=== PATIENT | male | born 1955 | race Hispanic/Latino ===

== ENCOUNTER 2021-04-11 07:42 | Inpatient (IN) | payer OTHER ==
[~2021-04-11] VITALS: Ht 170.2 cm; Wt 98.7 kg
[2021-04-11] MEDS ORDERED: 0.9%NACL 1000ML 1,000 ML IV ONE (08:33)
[2021-04-11 08:41] LABS: BASOPHILS % (AUTO) 0.3 % (0.0-5.0); EOSINOPHILS % (AUTO) 0.1 % (0.0-8.0); LYMPHOCYTES % (AUTO) 10.6 % (21.0-51.0); MEAN CORPUSCULAR HEMOGLOBIN 28.9 pg (27.0-33.0); MEAN CORPUSCULAR HGB CONC 32.8 g/dL (32.0-36.0); MONOCYTES % (AUTO) 5.3 % (3.0-13.0); NEUTROPHILS % (AUTO) 82.9 % (40.0-77.0); PLATELET COUNT (AUTO) 256 K/uL (130-400); RED BLOOD CELL COUNT(AUTO) 4.43 MIL/uL (4.50-6.20); RED CELL DISTRIBUTION WIDTH 12.7 % (11.0-15.5); WHITE BLOOD COUNT (AUTO) 15.3 K/uL (4.8-10.8)
[2021-04-11] MEDS ORDERED: 0.9% NACL 500ML IV.SOLN 500 ML IV SCH (09:00)
[2021-04-11] MEDS ORDERED: CEFTRIAXONE 2GM VIAL IVP ONE (09:00)
[2021-04-11 09:14] LABS: CREATININE 1.1 mg/dL (0.5-1.5); POTASSIUM 3.7 mmol/L (3.5-5.1)
[2021-04-11 09:19] LABS: ALBUMIN 4.3 g/dL (3.5-5.0); BILIRUBIN,TOTAL 0.7 mg/dL (0.2-1.0); TOTAL PROTEIN, SERUM 8.3 g/dL (6.0-8.3)
[2021-04-11] MEDS ORDERED: MORPHINE 2 MG SYG ONE (09:19)
[2021-04-11] MEDS ORDERED: DIPHENHYDRAMINE HCL 25 MG CAPSULE PO PRN (09:30)
[2021-04-11] MEDS ORDERED: ONDANSETRON 4MG INJ IV PRN (09:30)
[2021-04-11] MEDS ORDERED: ACETAMINOPHEN 325 MG TAB PO PRN ×2 (09:30)
[2021-04-11] MEDS ORDERED: MAG/ALUM/SIMETH 30 ML UDCUP PO PRN (09:30)
[2021-04-11] MEDS ORDERED: DiphenhydrAMINE HCL 50 MG/ML VIAL IV PRN (09:30)
[2021-04-11] MEDS ORDERED: CEFTRIAXONE 2GM VIAL ONE (09:35)
[2021-04-11] MEDS ORDERED: 0.9%NACL 50ML 50 ML IV ONE (09:35)
[2021-04-11] MEDS: 0.9%NACL 1000ML 1,000 ML IV SCH ×2 (09:43→15:45)
[2021-04-11 09:59] LABS: HEMOGLOBIN A1C 6.2 % (4.0-6.0)
[2021-04-11] MEDS ORDERED: GLUCAGON 1MG KIT 1 MG ML IM PRN (10:00)
[2021-04-11] MEDS ORDERED: DEXTROSE 50%-WATER 50 ML DISP.SYRIN IV PRN (10:00)
[2021-04-11 10:14] LABS: INR 1.02 (0.85-1.15); PROTHROMBIN TIME 11.1 SEC (9.6-11.6)
[2021-04-11 10:15] LABS: PARTIAL THROMBOPLASTIN TIME 27.1 SEC (26.3-35.5)
[2021-04-11 10:16] LABS: BILIRUBIN,URINE NEGATIVE (NEGATIVE); GLUCOSE, URINE (UA) >=1000 mg/dL (NEGATIVE); KETONES,URINE 40 mg/dL (NEGATIVE); LEUKOCYTE ESTERASE ,URINE MODERATE (NEGATIVE); NITRATE,URINE POSITIVE (NEGATIVE); OCCULT BLOOD,URINE LARGE (NEGATIVE); PROTEIN,URINE >=300 mg/dL (NEGATIVE)
[2021-04-11 10:21] LABS: APPEARANCE,URINE TURBID (CLEAR); COLOR,URINE RED (YELLOW)
[2021-04-11 10:25] LABS: RBC,URINE TNTC /HPF (0-1)
[2021-04-11 10:26] LABS: BACTERIA,URINE Moderate /HPF (None Seen); SQUAMOUS EPITHELIAL CELL,UR 0-2 /HPF (0-2)
[2021-04-11] MEDS: 0.9%NACL 1000ML 1,983 ML IV SCH (11:02)
[2021-04-11] MEDS: INSULIN HUMULIN R 100 UNIT/ML 3ML SQ SCH ×3 (11:30→20:46)
[2021-04-11] MEDS ORDERED: MORPHINE 4 MG SYG ONE (15:35)
[2021-04-11] MEDS ORDERED: FINA5TAB41 PO (16:02)
[2021-04-11] MEDS ORDERED: CITA10TA13 PO (16:02)
[2021-04-11] MEDS ORDERED: PRAV80TA21 PO (16:02)
[2021-04-11] MEDS ORDERED: METF-446 PO (16:02)
[2021-04-11] MEDS ORDERED: TAMS-1 PO (16:02)
[2021-04-11] MEDS ORDERED: OMEP40CA21 PO (16:02)
[2021-04-11] MEDS ORDERED: DAPA10TA PO (16:02)
[2021-04-11 16:20] VITALS: BP 137/70
[2021-04-11] MEDS ORDERED: IOHEXOL-350 75 ML VIAL IV ONE (16:43)
[2021-04-11 17:49] LABS: HEMATOCRIT 38.3 % (42-54)
[2021-04-11] MEDS: MORPHINE 4 MG SYG IV PRN (19:42)
[2021-04-11] MEDS: FAMOTIDINE 20MG TAB PO SCH (19:42)
[2021-04-11 20:00] VITALS: BP 135/66
[2021-04-11] MEDS: ZOLPIDEM TARTRATE 5 MG TAB PO PRN ×2 (21:50→21:51)
[2021-04-12] VITALS: BP 141/66
[2021-04-12 04:00] VITALS: BP 137/55
[2021-04-12] MEDS: 0.9%NACL 1000ML 1,000 ML IV SCH ×2 (04:46→16:09)
[2021-04-12] MEDS: MORPHINE 4 MG SYG IV PRN (05:05)
[2021-04-12 05:42] LABS: MEAN CORPUSCULAR HEMOGLOBIN 28.6 pg (27.0-33.0); MEAN CORPUSCULAR HGB CONC 32.1 g/dL (32.0-36.0); MEAN CORPUSCULAR VOLUME 89.2 fL (79-99); RED BLOOD CELL COUNT(AUTO) 4.26 MIL/uL (4.50-6.20); RED CELL DISTRIBUTION WIDTH 13.1 % (11.0-15.5)
[2021-04-12] MEDS: INSULIN HUMULIN R 100 UNIT/ML 3ML SQ SCH ×4 (06:02→21:00)
[2021-04-12 06:13] LABS: ALBUMIN 3.9 g/dL (3.5-5.0); BILIRUBIN,TOTAL 0.5 mg/dL (0.2-1.0); CREATININE 0.8 mg/dL (0.5-1.5); POTASSIUM 3.8 mmol/L (3.5-5.1); TOTAL PROTEIN, SERUM 7.8 g/dL (6.0-8.3)
[2021-04-12 08:04] VITALS: BP 114/56
[2021-04-12] MEDS: FAMOTIDINE 20MG TAB PO SCH ×2 (08:28→20:59)
[2021-04-12] MEDS: 0.9%NACL 1000ML 1,983 ML IV SCH (09:30)
[2021-04-12 13:14] VITALS: BP 109/58
[2021-04-12 16:28] VITALS: BP 118/60
[2021-04-12 20:08] VITALS: BP 116/61
[2021-04-12] MEDS: ZOLPIDEM TARTRATE 5 MG TAB PO PRN (20:59)
[2021-04-13 00:12] VITALS: BP 120/52
[2021-04-13] MEDS: 0.9%NACL 1000ML 1,000 ML IV SCH ×3 (01:18→21:00)
[2021-04-13 04:12] VITALS: BP 102/56
[2021-04-13 04:18] LABS: BASOPHILS % (AUTO) 0.4 % (0.0-5.0); EOSINOPHILS % (AUTO) 1.6 % (0.0-8.0); LYMPHOCYTES % (AUTO) 23.3 % (21.0-51.0); MEAN CORPUSCULAR HEMOGLOBIN 28.9 pg (27.0-33.0); MEAN CORPUSCULAR HGB CONC 31.8 g/dL (32.0-36.0); MEAN CORPUSCULAR VOLUME 90.9 fL (79-99); MONOCYTES % (AUTO) 9.3 % (3.0-13.0); NEUTROPHILS % (AUTO) 65.1 % (40.0-77.0); PLATELET COUNT (AUTO) 188 K/uL (130-400); RED BLOOD CELL COUNT(AUTO) 3.74 MIL/uL (4.50-6.20)
[2021-04-13 04:38] LABS: ALBUMIN 3.2 g/dL (3.5-5.0); BILIRUBIN,TOTAL 0.3 mg/dL (0.2-1.0); CREATININE 0.7 mg/dL (0.5-1.5); POTASSIUM 3.6 mmol/L (3.5-5.1); TOTAL PROTEIN, SERUM 6.7 g/dL (6.0-8.3)
[2021-04-13] MEDS: INSULIN HUMULIN R 100 UNIT/ML 3ML SQ SCH ×4 (06:11→20:55)
[2021-04-13 08:00] VITALS: BP 118/60
[2021-04-13] MEDS: FAMOTIDINE 20MG TAB PO SCH ×2 (09:05→20:59)
[2021-04-13] MEDS: CEFTRIAXONE 1G VIAL IVP SCH ×2 (10:06→20:59)
[2021-04-13 12:00] VITALS: BP 150/48
[2021-04-13 16:00] VITALS: BP 127/60
[2021-04-13 20:24] VITALS: BP 120/68
[2021-04-13] MEDS: ZOLPIDEM TARTRATE 5 MG TAB PO PRN (21:13)
[2021-04-14] VITALS (24 sets, daily range): BP systolic 96–166; BP diastolic 43–115
[2021-04-14] MEDS: 0.9%NACL 1000ML 1,000 ML IV SCH ×6 (00:51→17:30)
[2021-04-14] MEDS: INSULIN HUMULIN R 100 UNIT/ML 3ML SQ SCH ×4 (06:17→20:38)
[2021-04-14 07:56] LABS: PROTHROMBIN TIME 10.9 SEC (9.6-11.6)
[2021-04-14 07:57] LABS: PARTIAL THROMBOPLASTIN TIME 27.8 SEC (26.3-35.5)
[2021-04-14] MEDS: FAMOTIDINE 20MG TAB PO SCH ×2 (09:00→20:37)
[2021-04-14] MEDS: CEFTRIAXONE 1G VIAL IVP SCH ×2 (10:12→20:37)
[2021-04-14] MEDS ORDERED: LIDOCAINE PF 100MG/5ML (2%) SYRINGE 5ML ONE (13:08)
[2021-04-14] MEDS ORDERED: NEOSTIGMINE 5MG/5ML SYR IV ONE (13:08)
[2021-04-14] MEDS ORDERED: GLYCOPYRROLATE 1 MG/5 ML SYRINGE ONE (13:08)
[2021-04-14] MEDS ORDERED: DEXAMETHASONE SOD PHOSPHATE 10MG/ML 1ML VIAL ONE (13:08)
[2021-04-14] MEDS ORDERED: SUCCINYLCHOLINE 200MG/10ML SYR ONE (13:08)
[2021-04-14] MEDS ORDERED: MIDAZOLAM HCL 1 MG/ML 2ML VIAL ONE ×2 (13:08→15:29)
[2021-04-14] MEDS ORDERED: ONDANSETRON 4MG INJ ONE (13:08)
[2021-04-14] MEDS ORDERED: ROCURONIUM 10MG/1ML SYR 10 MG/ML ML ONE (13:08)
[2021-04-14] MEDS ORDERED: PROPOFOL 10 MG/ML 20ML VIAL IV ONE (13:08)
[2021-04-14] MEDS ORDERED: FENTANYL CITRATE PF 50 MCG/1 ML 2ML VIAL ONE ×2 (13:09→14:50)
[2021-04-14] MEDS ORDERED: TRANEXAMIC ACID 1000MG/10ML ONE (13:53)
[2021-04-14] MEDS ORDERED: MEPERIDINE-PF 25 MG/ML SYG ONE (15:25)
[2021-04-14 16:09] LABS: HEMATOCRIT 34.5 % (42-54); MEAN CORPUSCULAR HGB CONC 31.6 g/dL (32.0-36.0); MEAN CORPUSCULAR VOLUME 91.8 fL (79-99); RED BLOOD CELL COUNT(AUTO) 3.76 MIL/uL (4.50-6.20); RED CELL DISTRIBUTION WIDTH 13.1 % (11.0-15.5); WHITE BLOOD COUNT (AUTO) 7.9 K/uL (4.8-10.8)
[2021-04-14 16:21] LABS: CREATININE 0.7 mg/dL (0.5-1.5); POTASSIUM 3.9 mmol/L (3.5-5.1)
[2021-04-14] MEDS ORDERED: MEPERIDINE-PF 75 MG/ML SYG ONE (16:31)
[2021-04-14] MEDS: PHARMACY COMMUNICATION MISC SCH (17:30)
[2021-04-14] MEDS ORDERED: ONDANSETRON 4MG INJ IVP PRN (17:30)
[2021-04-14] MEDS ORDERED: MEPERIDINE-PF 75 MG/ML SYG IVP PRN (17:30)
[2021-04-14] MEDS: ZOLPIDEM TARTRATE 5 MG TAB PO PRN (23:24)
[2021-04-15] MEDS: PHARMACY COMMUNICATION MISC SCH (01:30)
[2021-04-15] MEDS: 0.9%NACL 1000ML 1,000 ML IV SCH ×3 (03:30→15:50)
[2021-04-15 03:54] LABS: BASOPHILS % (AUTO) 0.4 % (0.0-5.0); HEMATOCRIT 29.3 % (42-54); LYMPHOCYTES % (AUTO) 19.3 % (21.0-51.0); MEAN CORPUSCULAR HEMOGLOBIN 28.5 pg (27.0-33.0); MEAN CORPUSCULAR HGB CONC 31.7 g/dL (32.0-36.0); MEAN CORPUSCULAR VOLUME 89.9 fL (79-99); MONOCYTES % (AUTO) 7.5 % (3.0-13.0); NEUTROPHILS % (AUTO) 69.5 % (40.0-77.0); PLATELET COUNT (AUTO) 190 K/uL (130-400); RED BLOOD CELL COUNT(AUTO) 3.26 MIL/uL (4.50-6.20); WHITE BLOOD COUNT (AUTO) 8.9 K/uL (4.8-10.8)
[2021-04-15 04:00] VITALS: BP 110/51
[2021-04-15 04:01] LABS: CREATININE 0.6 mg/dL (0.5-1.5); POTASSIUM 3.7 mmol/L (3.5-5.1)
[2021-04-15] MEDS: INSULIN HUMULIN R 100 UNIT/ML 3ML SQ SCH ×4 (07:19→20:37)
[2021-04-15 07:40] VITALS: BP 125/62
[2021-04-15] MEDS: FAMOTIDINE 20MG TAB PO SCH ×2 (09:08→20:43)
[2021-04-15] MEDS: CEFTRIAXONE 1G VIAL IVP SCH ×2 (09:08→22:27)
[2021-04-15 11:43] VITALS: BP 122/59
[2021-04-15] MEDS: ACETAMINOPHEN WITH CODEINE 1 TAB TAB PO PRN ×2 (12:47→21:05)
[2021-04-15 15:35] VITALS: BP 132/59
[2021-04-15] MEDS: AMINOCAPROIC ACID 500MG TAB PO SCH ×2 (17:15→20:42)
[2021-04-15 20:07] VITALS: BP 126/58
[2021-04-15] MEDS: ZOLPIDEM TARTRATE 5 MG TAB PO PRN (21:02)
[2021-04-15 23:32] VITALS: BP 129/65
[2021-04-16 03:11] VITALS: BP 143/85
[2021-04-16 04:13] LABS: HEMATOCRIT 33.1 % (42-54); MEAN CORPUSCULAR HEMOGLOBIN 28.4 pg (27.0-33.0); MEAN CORPUSCULAR HGB CONC 31.7 g/dL (32.0-36.0); MEAN CORPUSCULAR VOLUME 89.5 fL (79-99); RED BLOOD CELL COUNT(AUTO) 3.7 MIL/uL (4.50-6.20); RED CELL DISTRIBUTION WIDTH 13.4 % (11.0-15.5); WHITE BLOOD COUNT (AUTO) 7.4 K/uL (4.8-10.8)
[2021-04-16 04:26] LABS: CREATININE 0.7 mg/dL (0.5-1.5); POTASSIUM 3.9 mmol/L (3.5-5.1)
[2021-04-16] MEDS: INSULIN HUMULIN R 100 UNIT/ML 3ML SQ SCH ×4 (06:14→20:56)
[2021-04-16] MEDS: AMINOCAPROIC ACID 500MG TAB PO SCH ×4 (08:35→20:32)
[2021-04-16] MEDS: FAMOTIDINE 20MG TAB PO SCH ×2 (08:35→20:32)
[2021-04-16] MEDS: FERROUS GLUCONATE 325 MG TABLET PO SCH ×3 (08:35→21:57)
[2021-04-16] MEDS: FOLIC ACID 1 MG TABLET PO SCH (08:35)
[2021-04-16] MEDS: ACETAMINOPHEN WITH CODEINE 1 TAB TAB PO PRN ×2 (08:52→20:34)
[2021-04-16] MEDS: CEFTRIAXONE 1G VIAL IVP SCH ×2 (09:11→20:32)
[2021-04-16] MEDS: PHARMACY COMMUNICATION MISC SCH ×2 (09:30→17:30)
[2021-04-16] MEDS: 0.9%NACL 1000ML 1,000 ML IV SCH ×2 (09:30→22:50)
[2021-04-16 10:07] VITALS: BP 133/70
[2021-04-16 14:10] VITALS: BP 123/55
[2021-04-16 17:04] VITALS: BP 143/72
[2021-04-16 19:43] VITALS: BP 124/87
[2021-04-16] MEDS: ZOLPIDEM TARTRATE 5 MG TAB PO PRN (20:32)
[2021-04-17 00:53] VITALS: BP 143/85
[2021-04-17] MEDS: PHARMACY COMMUNICATION MISC SCH ×2 (01:21→09:30)
[2021-04-17] MEDS: LACTULOSE 20 GM/30 ML UDCUP PO SCH ×2 (01:21→13:41)
[2021-04-17 04:24] VITALS: BP 121/68
[2021-04-17] MEDS: INSULIN HUMULIN R 100 UNIT/ML 3ML SQ SCH ×2 (06:16→11:30)
[2021-04-17 08:00] VITALS: BP 132/75
[2021-04-17] MEDS: FERROUS GLUCONATE 325 MG TABLET PO SCH (09:00)
[2021-04-17] MEDS: CEFTRIAXONE 1G VIAL IVP SCH ×2 (11:30→13:06)
[2021-04-17] MEDS: FOLIC ACID 1 MG TABLET PO SCH (11:30)
[2021-04-17] MEDS: FAMOTIDINE 20MG TAB PO SCH (11:30)
[2021-04-17] MEDS: AMINOCAPROIC ACID 500MG TAB PO SCH ×2 (11:31→13:39)
[2021-04-17] MEDS: ACETAMINOPHEN WITH CODEINE 1 TAB TAB PO PRN (11:41)
[2021-04-17 12:00] VITALS: BP 127/76
[2021-04-17] MEDS ORDERED: FERR324T17 PO (12:26)
[2021-04-17] MEDS ORDERED: CEPH500B PO (12:26)
== END 2021-04-17 15:30 | disposition home or self-care (01) | DRG 713 ==
LOC: EDH 07:42 → EDHIP 09:26 → 3BH 14:16
PROVIDERS: ADMIT Hospitalist; ATTEND Hospitalist
PROC: 0V508ZZ Destruction of Prostate, Via Natural or Artificial Opening Endoscopic (ICD-10-PCS; 2021-04-14)
PROC: 8E0W8CZ Robotic Assisted Procedure of Trunk Region, Via Natural or Artificial Opening Endoscopic (ICD-10-PCS; 2021-04-14)
PROC: 0TCB8ZZ Extirpation of Matter from Bladder, Via Natural or Artificial Opening Endoscopic (ICD-10-PCS; 2021-04-14)
PROC: 0VT08ZZ Resection of Prostate, Via Natural or Artificial Opening Endoscopic (ICD-10-PCS; principal; 2021-04-14 13:38)
PROC: 30233N1 Transfusion of Nonautologous Red Blood Cells into Peripheral Vein, Percutaneous Approach (ICD-10-PCS; 2021-04-15)
DX: N40.1 Benign prostatic hyperplasia with lower urinary tract symptoms (principal); N39.0 Urinary tract infection, site not specified; N13.8 Other obstructive and reflux uropathy; R31.0 Gross hematuria; E11.9 Type 2 diabetes mellitus without complications; E78.5 Hyperlipidemia, unspecified; I10 Essential (primary) hypertension; N32.89 Other specified disorders of bladder; M19.90 Unspecified osteoarthritis, unspecified site; E78.00 Pure hypercholesterolemia, unspecified; I25.10 Atherosclerotic heart disease of native coronary artery without angina pectoris; F17.210 Nicotine dependence, cigarettes, uncomplicated; K80.20 Calculus of gallbladder without cholecystitis without obstruction; Z20.822 Contact with and (suspected) exposure to COVID-19
CPT/HCPCS: 36415; 36430; 71045; 74178; 76770; 80048; 80053; 81001; 82550; 82948; 83036; 83605; 83880; 84145; 84484; 85014; 85018; 85025; 85027; 85610; 85730; 86850; 86900; 86901; 86923; 87040; 87088; 87635; 93005; A4344; A4346; G0378; J0330; J0696; J1100; J1815; J2001; J2175; J2250; J2270; J2405; J2704; J2710; J3010; J3490; J7030; P9016; Q9967

== ENCOUNTER 2021-04-20 23:23 | Emergency (ER) | payer OTHER ==
[~2021-04-20] VITALS: Ht 170.2 cm; Wt 95.3 kg
[~2021-04-20 23:23] MED LIST: CEPH500B PO; CITA10TA13 PO; DAPA10TA PO; FERR324T17 PO; FINA5TAB41 PO; METF-446 PO; OMEP40CA21 PO; PRAV80TA21 PO; TAMS-1 PO
[2021-04-21] MEDS ORDERED: MORPHINE 4 MG SYG IV ONE (01:00)
[2021-04-21] MEDS ORDERED: ONDANSETRON 4MG INJ IVP ONE (01:00)
[2021-04-21 01:36] LABS: APPEARANCE,URINE Turbid (CLEAR); BILIRUBIN,URINE Negative (NEGATIVE); COLOR,URINE Yellow (YELLOW); GLUCOSE, URINE (UA) >=1000 mg/dL (NEGATIVE); KETONES,URINE Trace mg/dL (NEGATIVE); LEUKOCYTE ESTERASE ,URINE Small (NEGATIVE); NITRATE,URINE Negative (NEGATIVE); OCCULT BLOOD,URINE Large (NEGATIVE); PROTEIN,URINE 300 mg/dL (NEGATIVE); UROBILINOGEN,URINE 0.2 mg/dL (0.2-1.0)
[2021-04-21 01:43] LABS: BACTERIA,URINE None Seen /HPF (None Seen); RBC,URINE 51-100 /HPF (0-1); SQUAMOUS EPITHELIAL CELL,UR Rare /HPF (0-2); YEAST,URINE BUDDING Few /HPF (None Seen)
[2021-04-21 05:50] VITALS: BP 132/65
[2021-04-21] MEDS ORDERED: SULF1TAB42 PO (06:03)
== END 2021-04-21 06:14 | disposition home or self-care (01) ==
LOC: EDH 23:23
DX: T83.011A Breakdown (mechanical) of indwelling urethral catheter, initial encounter (principal); N39.0 Urinary tract infection, site not specified; R31.9 Hematuria, unspecified; E11.9 Type 2 diabetes mellitus without complications; E78.00 Pure hypercholesterolemia, unspecified; I10 Essential (primary) hypertension; M19.90 Unspecified osteoarthritis, unspecified site; Z79.84 Long term (current) use of oral hypoglycemic drugs; Z79.899 Other long term (current) drug therapy
CPT/HCPCS: 81001; 87077; 87088; 87186; 99283; J2270; J2405

== ENCOUNTER 2021-04-26 03:33 | Emergency (ER) | payer OTHER ==
[~2021-04-26] VITALS: Ht 170.2 cm; Wt 95.3 kg
[~2021-04-26 03:33] MED LIST changes: +SULF1TAB42 PO
[2021-04-26 03:35] VITALS: BP 126/61
== END 2021-04-26 03:59 | disposition home or self-care (01) ==
LOC: EDH 03:33
DX: Z46.6 Encounter for fitting and adjustment of urinary device (principal); E11.9 Type 2 diabetes mellitus without complications; E78.00 Pure hypercholesterolemia, unspecified; I10 Essential (primary) hypertension; Z79.84 Long term (current) use of oral hypoglycemic drugs; Z79.899 Other long term (current) drug therapy

== ENCOUNTER 2021-04-28 05:18 | Inpatient (IN) | payer OTHER ==
[~2021-04-28] VITALS: Ht 170.2 cm; Wt 95.3 kg
[2021-04-28 06:11] LABS: BASOPHILS % (AUTO) 0.6 % (0.0-5.0); EOSINOPHILS % (AUTO) 1.4 % (0.0-8.0); HEMATOCRIT 35.3 % (42-54); LYMPHOCYTES % (AUTO) 8.1 % (21.0-51.0); MEAN CORPUSCULAR HEMOGLOBIN 27.8 pg (27.0-33.0); MEAN CORPUSCULAR HGB CONC 32.6 g/dL (32.0-36.0); MEAN CORPUSCULAR VOLUME 85.3 fL (79-99); MONOCYTES % (AUTO) 5.7 % (3.0-13.0); NEUTROPHILS % (AUTO) 83.2 % (40.0-77.0); PLATELET COUNT (AUTO) 302 K/uL (130-400); RED BLOOD CELL COUNT(AUTO) 4.14 MIL/uL (4.50-6.20); RED CELL DISTRIBUTION WIDTH 13.3 % (11.0-15.5); WHITE BLOOD COUNT (AUTO) 12.6 K/uL (4.8-10.8)
[2021-04-28 06:30] LABS: ALBUMIN 3.6 g/dL (3.5-5.0); BILIRUBIN,TOTAL 0.3 mg/dL (0.2-1.0); CREATININE 0.9 mg/dL (0.5-1.5); POTASSIUM 3.7 mmol/L (3.5-5.1); TOTAL PROTEIN, SERUM 7.9 g/dL (6.0-8.3)
[2021-04-28 06:48] LABS: APPEARANCE,URINE CLEAR (CLEAR); BILIRUBIN,URINE SMALL (NEGATIVE); COLOR,URINE YELLOW (YELLOW); GLUCOSE, URINE (UA) >=1000 mg/dL (NEGATIVE); KETONES,URINE 15 mg/dL (NEGATIVE); LEUKOCYTE ESTERASE ,URINE MODERATE (NEGATIVE); NITRATE,URINE POSITIVE (NEGATIVE); OCCULT BLOOD,URINE LARGE (NEGATIVE); PH,URINE 5.5 (5.0-8.0); PROTEIN,URINE 100 mg/dL (NEGATIVE)
[2021-04-28 06:57] LABS: BACTERIA,URINE Moderate /HPF (None Seen); RBC,URINE TNTC /HPF (0-1); WBC,URINE TNTC /HPF (0-1)
[2021-04-28 06:58] LABS: SQUAMOUS EPITHELIAL CELL,UR 0-2 /HPF (0-2)
[2021-04-28] MEDS ORDERED: 0.9%NACL 1000ML 1,000 ML IV ONE (07:00)
[2021-04-28] MEDS: INSULIN HUMULIN R 100 UNIT/ML 3ML SQ SCH ×3 (07:30→17:00)
[2021-04-28] MEDS ORDERED: NITROGLYCERIN 0.4 MG SL TAB SL PRN (07:30)
[2021-04-28] MEDS ORDERED: HYDRALAZINE 20MG/ML VIAL IV PRN (07:30)
[2021-04-28] MEDS ORDERED: 0.9%NACL 1000ML 1,000 ML IV SCH (07:30)
[2021-04-28] MEDS ORDERED: ZOLPIDEM TARTRATE 5 MG TAB PO PRN (07:30)
[2021-04-28] MEDS ORDERED: LACTULOSE 20 GM/30 ML UDCUP PO PRN (07:30)
[2021-04-28] MEDS ORDERED: ONDANSETRON 4MG INJ IV PRN (07:30)
[2021-04-28] MEDS ORDERED: ACETAMINOPHEN 325 MG TAB PO PRN ×2 (07:30)
[2021-04-28] MEDS ORDERED: NITR100C PO (07:37)
[2021-04-28] MEDS ORDERED: LISI5TAB21 PO (07:37)
[2021-04-28] MEDS ORDERED: ICOS1CAP2 PO (07:37)
[2021-04-28] MEDS ORDERED: TRAN650T5 PO (07:37)
[2021-04-28] MEDS ORDERED: LEVOFLOXACIN 750 MG/D5W 150 ML 150 ML IV ONE (09:00)
[2021-04-28] MEDS ORDERED: MORPHINE 2 MG SYG ONE (10:51)
[2021-04-28] MEDS ORDERED: MORPHINE 2 MG SYG IVP PRN (11:00)
[2021-04-28] MEDS ORDERED: HYDROCODONE/ACETAMINOPHEN 5/325 MG TAB PO ONE (15:00)
[2021-04-28 17:03] VITALS: BP 105/63
[2021-04-29] MEDS ORDERED: LEVOFLOXACIN 750 MG/D5W 150 ML 150 ML IV SCH (09:00)
== END 2021-04-28 20:02 | disposition left against medical advice (07) | DRG 690 ==
LOC: EDH 05:18 → EDHIP 07:17 → OBSVTOIN 07:17
PROVIDERS: ADMIT Internal Medicine; ATTEND Internal Medicine
DX: N39.0 Urinary tract infection, site not specified (principal); R31.9 Hematuria, unspecified; M19.90 Unspecified osteoarthritis, unspecified site; I25.10 Atherosclerotic heart disease of native coronary artery without angina pectoris; E11.9 Type 2 diabetes mellitus without complications; I10 Essential (primary) hypertension; F17.210 Nicotine dependence, cigarettes, uncomplicated
CPT/HCPCS: 36415; 74176; 80053; 81001; 82948; 83605; 83690; 85025; 87040; 87077; 87088; 87186; G0378; J1956; J7030